=== PATIENT | male | born 1945 | race Caucasian/White ===

== ENCOUNTER 2016-07-06 09:14 | Inpatient (IN) | payer OTHER ==
[~2016-07-06] VITALS: Ht 175.3 cm; Wt 83.5 kg
[~2016-07-06 09:14] MED LIST: AMITRIPTYLINE H75 MG PO; AMOXICILLIN500 M1 PO; ANTIVERT25 MG PO; ASPIR-TRIN325 M1 PO; CARVEDILOL25 MG PO; Combivent IH; DILTIAZEM 24HR180 MG PO; DOCUSATE SODIU100 MG PO; FISH OIL CONC1 EACH PO; GLUCOPHAGE1000 MG PO; GLUCOTROL10 MG PO; GLUCOTROL5 MG PO; Glucotrol PO; HYDROCHLOROTHIA25 MG PO; IMDUR120 MG PO; LASIX10 MG PO; LISINOPRIL40 MG PO; Lasix PO; METOPROLOL TART50 MG PO; MOTRIN800 MG PO; NAPROSYN500 MG PO; NEURONTIN300 MG PO; NEURONTIN400 M1 PO; NITROQUICK0.4 MG PO; NOVOLIN,HU100 UNITS1 SC; NOVOLOG MI100 UNIT/M PO; NOVOLOG MI100 UNIT/M SC; OXYBUTYNIN CHLOR5 MG PO; Omega III EPA + DHA PO; PLAVIX75 MG PO; PROTONIX40 MG PO; SIMVASTATIN40 MG PO; SPIRONOLACTONE50 MG PO; ULTRAM50 MG PO; VITAMIN A AND1 EACH TP; ZANTAC150 M1 PO; ZESTRIL,PRINIVI20 MG PO; ZITHROMAX250 MG PO; ZOCOR20 MG PO
[2016-07-06 10:59] LABS: EOSINOPHIL (%) 3.9 % (0-5); EOSINOPHIL COUNT 0.3 K/uL (0-0.3); HEMATOCRIT 35.6 % (38.0-50.0); IMMATURE GRANULOCYTE (%) 0.1 % (0.0-0.7); IMMATURE GRANULOCYTE COUNT 0.1 K/uL; LYMPHOCYTE COUNT 2.6 K/uL (1.0-2.8); MCH 29.5 PG (29.0-34.0); MCHC 33.4 G/DL (30.0-36.0); MCV 88.3 FL (86-99); MEAN PLAT.VOLUME 9.2 uM^3 (9.0-12.4); MONOCYTE (%) 6.6 % (3-12); MONOCYTE COUNT 0.5 K/uL (0-0.8); NEUTROPHIL (%) 54.8 % (45-76); NEUTROPHIL COUNT 4.2 K/uL (1.8-6.4); PLATELET COUNT 238 K/uL (156-360); RBC DIS.WIDTH-CV 14.9 % (11.8-14.6); RBC DIS.WIDTH-SD 47.7 % (39-53); RED BLOOD COUNT 4.03 M/uL (4.00-5.50); WHITE BLOOD COUNT 7.7 K/uL (4.1-10.2)
[2016-07-06 11:08] LABS: CHLORIDE 99 mEq/L (99-109); POTASSIUM 4.5 mEq/L (3.7-5.4); SODIUM 136 mEq/L (136-147)
[2016-07-06 11:10] LABS: GLUCOSE 220 mg/dL (70-99)
[2016-07-06 11:11] LABS: ANION GAP 12 MEQ/L (2-14)
[2016-07-06 11:12] LABS: TOTAL BILIRUBIN 0.4 mg/dL (0.0-1.0)
[2016-07-06 11:14] LABS: ALKALINE PHOSPHATASE 114 IU/L (3-129); GFR ESTIMATE (CALCULATED) 13 mL/min/
[2016-07-06 11:15] LABS: UREA NITROGEN (BUN) 40 mg/dL (9-23)
[2016-07-06 11:17] LABS: TOTAL CK 1012 IU/L (1-294)
[2016-07-06 11:18] LABS: CREATINE KINASE 1012 IU/L (1-294)
[2016-07-06 11:24] LABS: TROP-I INTERPRETATION POSITIVE
[2016-07-06 11:25] LABS: CK-MB 23.1 ng/mL (0.0-4.9)
[2016-07-06 11:26] LABS: TROPONIN-I 1.31 ng/mL (0.0-0.30)
[2016-07-06 13:14] LABS: INTER. NORMALIZED RATIO 1.1; PROTHROMBIN TIME 11.7 (9.2-11.2); PTT 25.1 (25-32)
[2016-07-06 15:52] LABS: BILIRUBIN SMALL; BLOOD NEGATIVE; COLOR YELLOW ((YELLOW)); GLUCOSE (STRIP) 250; KETONES NEGATIVE; LEUKOCYTES NEGATIVE; NITRITE NEGATIVE; PROTEIN (STRIP) TRACE; SPECIFIC GRAVITY 1.021 (1.000-1.030); UROBILINOGEN 0.2 MG/DL (0.2-1.0)
[2016-07-06 15:54] LABS: ADD MIUA? NO; UCUL ADDED? NO
[2016-07-06] MEDS ORDERED: COREG6.25 M1 PO (16:03)
[2016-07-06] MEDS ORDERED: NOVOLOG MI100 UNIT/4 SC (16:12)
[2016-07-06] MEDS ORDERED: NORVASC10 MG PO (16:14)
[2016-07-06] MEDS ORDERED: LIPITOR40 MG PO (16:15)
[2016-07-06] MEDS ORDERED: AMITRIPTYLINE H75 MG PO (16:16)
[2016-07-06] MEDS ORDERED: GABAPENTIN600 MG PO (16:16)
[2016-07-06] MEDS ORDERED: OMEPRAZOLE40 M1 PO (16:17)
[2016-07-06 16:22] VITALS: BP 127/78
[2016-07-06 16:33] LABS: POINT-OF-CARE METER ID UU14174216
[2016-07-06 17:00] VITALS: BP 127/78
[2016-07-06 17:00] LABS: UR CREATININE CONCENTRATION 223.8 MG/DL
[2016-07-06 17:48] LABS: UR CREATININE CONCENTRATION 222.7 MG/DL
[2016-07-06 19:05] LABS: TROP-I INTERPRETATION POSITIVE
[2016-07-06 19:09] LABS: TROPONIN-I 1.31 ng/mL (0.0-0.30)
[2016-07-06 19:30] VITALS: BP 122/63
[2016-07-06 20:51] LABS: POINT-OF-CARE METER ID UU13113698
[2016-07-07] VITALS (7 sets, daily range): BP systolic 130–179; BP diastolic 70–85
[2016-07-07 01:01] LABS: TROP-I INTERPRETATION POSITIVE
[2016-07-07 01:05] LABS: TROPONIN-I 0.94 ng/mL (0.0-0.30)
[2016-07-07 05:59] LABS: BASOPHIL COUNT 0.1 K/uL (0-0.1); EOSINOPHIL (%) 4.5 % (0-5); EOSINOPHIL COUNT 0.3 K/uL (0-0.3); HEMATOCRIT 34.3 % (38.0-50.0); LYMPHOCYTE COUNT 2.2 K/uL (1.0-2.8); MCH 29.6 PG (29.0-34.0); MCHC 32.9 G/DL (30.0-36.0); MCV 89.8 FL (86-99); MEAN PLAT.VOLUME 9.7 uM^3 (9.0-12.4); MONOCYTE COUNT 0.4 K/uL (0-0.8); NEUTROPHIL (%) 50.1 % (45-76); NEUTROPHIL COUNT 2.9 K/uL (1.8-6.4); PLATELET COUNT 219 K/uL (156-360); RBC DIS.WIDTH-CV 15.1 % (11.8-14.6); RBC DIS.WIDTH-SD 49.1 % (39-53); RED BLOOD COUNT 3.82 M/uL (4.00-5.50); WHITE BLOOD COUNT 5.7 K/uL (4.1-10.2)
[2016-07-07 06:26] LABS: ANION GAP 7 MEQ/L (2-14); CHLORIDE 103 MEQ/L (99-109); CREATINE KINASE 361 IU/L (1-294); GFR ESTIMATE (CALCULATED) 37 mL/min/; GLUCOSE 226 mg/dL (70-99); MAGNESIUM 1.8 mg/dl (1.3-2.7); POTASSIUM 5.4 MEQ/L (3.7-5.4); SAMPLE HEMOLYSIS CHECK 0; SAMPLE ICTERIC CHECK 0; SAMPLE LIPEMIA CHECK 0; SODIUM 135 MEQ/L (136-147); UREA NITROGEN (BUN) 31 mg/dL (9-23)
[2016-07-07 06:41] LABS: URIC ACID 10.6 mg/dL (3.1-9.2)
[2016-07-08 05:16] VITALS: BP 145/67
[2016-07-08 05:32] LABS: EOSINOPHIL (%) 3.7 % (0-5); EOSINOPHIL COUNT 0.3 K/uL (0-0.3); HEMATOCRIT 35.1 % (38.0-50.0); IMMATURE GRANULOCYTE (%) 0.4 % (0.0-0.7); LYMPHOCYTE COUNT 2.7 K/uL (1.0-2.8); MCH 28.9 PG (29.0-34.0); MCHC 32.5 G/DL (30.0-36.0); MCV 89.1 FL (86-99); MEAN PLAT.VOLUME 9.6 uM^3 (9.0-12.4); MONOCYTE (%) 6.5 % (3-12); MONOCYTE COUNT 0.5 K/uL (0-0.8); NEUTROPHIL (%) 50.6 % (45-76); NEUTROPHIL COUNT 3.5 K/uL (1.8-6.4); PLATELET COUNT 238 K/uL (156-360); RBC DIS.WIDTH-CV 14.7 % (11.8-14.6); RBC DIS.WIDTH-SD 48.1 % (39-53); RED BLOOD COUNT 3.94 M/uL (4.00-5.50)
[2016-07-08 06:19] LABS: ANION GAP 8 MEQ/L (2-14); CHLORIDE 101 MEQ/L (99-109); CREATINE KINASE 213 IU/L (1-294); GFR ESTIMATE (CALCULATED) > 59 mL/min/; GLUCOSE 205 mg/dL (70-99); POTASSIUM 4.8 MEQ/L (3.7-5.4); SAMPLE HEMOLYSIS CHECK 0; SAMPLE ICTERIC CHECK 0; SAMPLE LIPEMIA CHECK 0; SODIUM 137 MEQ/L (136-147); UREA NITROGEN (BUN) 25 mg/dL (9-23)
[2016-07-08 07:35] LABS: POINT-OF-CARE METER ID UU13113781
[2016-07-08 08:30] VITALS: BP 162/66
== END 2016-07-08 12:07 | DRG 683 ==
LOC: EME 09:14 → EDOF 13:23 → 4EAST 13:23 → EDOF 13:37 → 4EAST 16:11
PROVIDERS: Emergency Medicine; Hospitalist; Internal Medicine; Internal Medicine Nephrology
DX: N17.9 Acute kidney failure, unspecified (principal); M62.82 Rhabdomyolysis; I24.8 Other forms of acute ischemic heart disease; E86.0 Dehydration; T39.395A Adverse effect of other nonsteroidal anti-inflammatory drugs [NSAID], initial encounter; T46.4X5A Adverse effect of angiotensin-converting-enzyme inhibitors, initial encounter; I25.10 Atherosclerotic heart disease of native coronary artery without angina pectoris; I12.9 Hypertensive chronic kidney disease with stage 1 through stage 4 chronic kidney disease, or unspecified chronic kidney disease; N18.3 Chronic kidney disease, stage 3 (moderate); E11.22 Type 2 diabetes mellitus with diabetic chronic kidney disease; I35.0 Nonrheumatic aortic (valve) stenosis; G62.9 Polyneuropathy, unspecified; E78.5 Hyperlipidemia, unspecified; K21.9 Gastro-esophageal reflux disease without esophagitis; M19.90 Unspecified osteoarthritis, unspecified site; I25.2 Old myocardial infarction; Z95.5 Presence of coronary angioplasty implant and graft; Z85.21 Personal history of malignant neoplasm of larynx; Z87.891 Personal history of nicotine dependence; Z88.5 Allergy status to narcotic agent
CPT/HCPCS: 70450; 71010; 76770; 80048; 80053; 80069; 81003; 82550; 82553; 82570; 82948; 83735; 84156; 84300; 84484; 84550; 85025; 85610; 85730; 89190; 93005; 93306; 99281; 99285; J1644; J1815; J7030

== ENCOUNTER 2017-04-16 11:26 | Emergency (ER) | payer OTHER ==
[~2017-04-16] VITALS: Ht 175.3 cm; Wt 94.7 kg
[~2017-04-16 11:26] MED LIST changes: +COREG6.25 M1 PO; +GABAPENTIN600 MG PO; +LIPITOR40 MG PO; +NORVASC10 MG PO; +NOVOLOG MI100 UNIT/4 SC; +OMEPRAZOLE40 M1 PO
[2017-04-16 12:30] LABS: INTER. NORMALIZED RATIO 1.2
[2017-04-16 12:31] LABS: BASOPHIL COUNT 0.1 K/uL (0-0.1); EOSINOPHIL (%) 0.1 % (0-5); HEMATOCRIT 38.3 % (38.0-50.0); IMMATURE GRANULOCYTE (%) 0.6 % (0.0-0.7); IMMATURE GRANULOCYTE COUNT 0.1 K/uL; INSTRUMENT ABS NEUTROPHIL CT 16.3 K/uL; LYMPHOCYTE COUNT 1.6 K/uL (1.0-2.8); MCH 29.7 PG (29.0-34.0); MCHC 33.7 G/DL (30.0-36.0); MCV 88.2 FL (86-99); MEAN PLAT.VOLUME 10.1 uM^3 (9.0-12.4); MONOCYTE (%) 5.8 % (3-12); MONOCYTE COUNT 1.1 K/uL (0-0.8); NEUTROPHIL (%) 84.8 % (45-76); NEUTROPHIL COUNT 16.3 K/uL (1.8-6.4); PLATELET COUNT 269 K/uL (156-360); RBC DIS.WIDTH-CV 14.8 % (11.8-14.6); RBC DIS.WIDTH-SD 48.3 % (39-53); RED BLOOD COUNT 4.34 M/uL (4.00-5.50); WHITE BLOOD COUNT 19.2 K/uL (4.1-10.2)
[2017-04-16 12:33] LABS: CHLORIDE 105 mEq/L (99-109); POTASSIUM 3.5 mEq/L (3.7-5.4); PTT 24.9 SEC (25-37); SODIUM 138 mEq/L (136-147)
[2017-04-16 12:34] LABS: MAGNESIUM 1.5 mg/dL (1.3-2.7)
[2017-04-16 12:36] LABS: ANION GAP 12 MEQ/L (2-14)
[2017-04-16 12:37] LABS: GLUCOSE 421 mg/dL (70-99); TOTAL BILIRUBIN 0.6 mg/dL (0.0-1.0)
[2017-04-16 12:39] LABS: ALKALINE PHOSPHATASE 77 IU/L (3-129); GFR ESTIMATE (CALCULATED) 40 mL/min/
[2017-04-16 12:40] LABS: UREA NITROGEN (BUN) 20 mg/dL (9-23)
[2017-04-16 12:44] LABS: TROP-I INTERPRETATION NEGATIVE; TROPONIN-I 0.01 ng/mL (0.0-0.30)
[2017-04-16 15:54] VITALS: BP 121/69
== END 2017-04-16 16:12 | disposition short-term general hospital (02) ==
LOC: EME 11:26
PROVIDERS: Emergency Medicine
DX: K52.9 Noninfective gastroenteritis and colitis, unspecified (principal); E11.65 Type 2 diabetes mellitus with hyperglycemia; R10.31 Right lower quadrant pain; Z79.4 Long term (current) use of insulin; E78.5 Hyperlipidemia, unspecified; I10 Essential (primary) hypertension; K21.9 Gastro-esophageal reflux disease without esophagitis; Z85.21 Personal history of malignant neoplasm of larynx; Z87.440 Personal history of urinary (tract) infections; Z88.8 Allergy status to other drugs, medicaments and biological substances; Z87.891 Personal history of nicotine dependence
CPT/HCPCS: 74176; 80053; 81003; 82010; 83605; 83735; 84484; 85025; 85610; 85730; 87493; 93005; 99281; 99285; J2270; J2405; J7030

== ENCOUNTER 2017-09-03 13:59 | Emergency (ER) | payer OTHER ==
[~2017-09-03] VITALS: Ht 175.3 cm; Wt 90.9 kg
[2017-09-03 16:32] LABS: HEMATOCRIT 37.7 % (38.0-50.0); HEMOGLOBIN 12.7 G/DL (12.5-16.6); MCH 28.5 PG (29.0-34.0); MCHC 33.7 G/DL (30.0-36.0); MCV 84.5 FL (86-99); PLATELET COUNT 332 K/uL (156-360); RBC DIS.WIDTH-CV 13.6 % (11.8-14.6); RBC DIS.WIDTH-SD 42.5 % (39-53); RED BLOOD COUNT 4.46 M/uL (4.00-5.50); WHITE BLOOD COUNT 10.3 K/uL (4.1-10.2)
[2017-09-03 16:49] LABS: CHLORIDE 103 mEq/L (99-109); POTASSIUM 4.9 mEq/L (3.7-5.4); SODIUM 137 mEq/L (136-147)
[2017-09-03 16:51] LABS: GLUCOSE 197 mg/dL (70-99)
[2017-09-03 16:54] LABS: CREATININE 1.4 mg/dL (0.6-1.3); GFR ESTIMATE (CALCULATED) 53 mL/min/ (58.99-99999)
[2017-09-03 16:55] LABS: UREA NITROGEN (BUN) 17 mg/dL (9-23)
[2017-09-03] MEDS ORDERED: LOVENOX80 MG/0.8 SC (18:05)
[2017-09-03 18:45] VITALS: BP 144/76
== END 2017-09-03 18:58 ==
LOC: EME 13:59
PROVIDERS: Emergency Medicine Emergency Medical Services
DX: I82.422 Acute embolism and thrombosis of left iliac vein (principal); I82.432 Acute embolism and thrombosis of left popliteal vein; I82.442 Acute embolism and thrombosis of left tibial vein; I87.2 Venous insufficiency (chronic) (peripheral); E11.40 Type 2 diabetes mellitus with diabetic neuropathy, unspecified; I10 Essential (primary) hypertension; E78.5 Hyperlipidemia, unspecified; K21.9 Gastro-esophageal reflux disease without esophagitis; Z79.4 Long term (current) use of insulin; Z87.440 Personal history of urinary (tract) infections; Z85.21 Personal history of malignant neoplasm of larynx; Z87.891 Personal history of nicotine dependence; Z91.041 Radiographic dye allergy status; Z88.2 Allergy status to sulfonamides; Z88.8 Allergy status to other drugs, medicaments and biological substances
CPT/HCPCS: 80048; 85027; 93971; 99281; 99284; J1650